=== PATIENT | male | born 1970 | race Caucasian/White ===

== ENCOUNTER 2017-09-10 20:01 | Emergency (ER) | payer OTHER ==
[~2017-09-10] VITALS: Ht 193 cm; Wt 136.5 kg
[~2017-09-10 20:01] MED LIST: CIPRO500 MG PO; CLARITIN10 M3 PO
[2017-09-10 22:02] VITALS: BP 134/87
== END 2017-09-10 21:44 | disposition home or self-care (01) ==
LOC: ER 20:01
DX: S66.222A Laceration of extensor muscle, fascia and tendon of left thumb at wrist and hand level, initial encounter (principal); W26.0XXA Contact with knife, initial encounter; Y93.89 Activity, other specified; Y92.89 Other specified places as the place of occurrence of the external cause; Y99.8 Other external cause status